=== PATIENT | male | born 1960 | race Caucasian/White ===

== ENCOUNTER 2019-06-10 12:31 | Emergency (ER) | payer OTHER ==
[~2019-06-10] VITALS: Ht 190.5 cm; Wt 102.1 kg
[2019-06-10 12:50] VITALS: BP 152/87
[2019-06-10] MEDS ORDERED: LIDOCAINE 1% HCL (LOCAL ANESTH.) INJ 20ML MDV ONE (14:04)
[2019-06-10] MEDS ORDERED: BACITRACIN TOP OINT 1 UD PKG TOP ONE (14:15)
[2019-06-10] MEDS ORDERED: LIDOCAINE 1% HCL (LOCAL ANESTH.) INJ 20ML MDV IJ ONE (14:15)
== END 2019-06-10 15:01 | disposition home or self-care (01) ==
LOC: ER 12:38
DX: S61.011A Laceration without foreign body of right thumb without damage to nail, initial encounter (principal); Z90.89 Acquired absence of other organs; W26.9XXA Contact with unspecified sharp object(s), initial encounter; Y93.89 Activity, other specified; Y99.8 Other external cause status; Y92.89 Other specified places as the place of occurrence of the external cause
CPT/HCPCS: 12001; 73140; 99283; J2001

== ENCOUNTER 2019-09-01 20:39 | Emergency (ER) | payer OTHER ==
[~2019-09-01] VITALS: Ht 190.5 cm; Wt 101.6 kg
[2019-09-02] MEDS ORDERED: ENOXAPARIN SOD 100 MG/1 ML SYRINGE SC ONE (00:30)
[2019-09-02 01:30] VITALS: BP 106/75
== END 2019-09-02 01:27 | disposition left against medical advice (07) ==
LOC: ER 20:39
DX: I82.401 Acute embolism and thrombosis of unspecified deep veins of right lower extremity (principal); Z53.29 Procedure and treatment not carried out because of patient's decision for other reasons; Z90.89 Acquired absence of other organs
CPT/HCPCS: 93971; 96372; 99284; J1650

== ENCOUNTER 2020-09-16 10:44 | Inpatient (IN) | payer OTHER ==
[~2020-09-16] VITALS: Ht 190.5 cm; Wt 98.4 kg
[2020-09-16 11:40] LABS: Basophils # (auto) 0 10 ^3/uL (0-0.2); Basophils % (auto) 0.6 % (0.0-2.0); Eosinophils # (auto) 0.2 10 ^3/uL (0-0.8); Eosinophils % (auto) 2.9 % (0.0-7.0); Hematocrit 46.7 % (41.0-53.0); Hemoglobin 15.9 g/dL (13.5-17.5); Lymphocytes # (auto) 1.9 10 ^3/uL (0.4-5.4); Lymphocytes % (auto) 30.9 % (10.0-50.0); Mean Corpuscular Volume 85.1 fL (80.0-100.0); Monocytes # (auto) 0.4 10 ^3/uL (0-1.3); Monocytes % (auto) 6.3 % (0.0-12.0); Neutrophils # (auto) 3.6 10 ^3/uL (1.6-8.6); Neutrophils % (auto) 59.3 % (37.0-80.0); Nucleated Red Blood Cells % 0.3 %; Platelet Count (auto) 276 10^3/uL (140-450); Red Blood Cells 5.48 10^6/uL (4.5-5.90); Red Cell Distribution Width 14.2 % (11.8-14.3)
[2020-09-16 11:42] LABS: INR 1.08 (0.9-1.15); Partial Thromboplastin Time 26.9 sec (23.0-31.2)
[2020-09-16 11:52] LABS: Albumin 3.9 g/dL (3.4-5.0); Calcium 8.9 mg/dL (8.5-10.1); Potassium 4.1 mmol/L (3.5-5.1)
[2020-09-16 11:55] LABS: BUN/Creatinine Ratio 10.8; Bilirubin, Total 0.2 mg/dL (0.2-1.0); Total Protein 8.1 g/dL (6.4-8.2)
[2020-09-16] MEDS ORDERED: LORazepam 0.5 MG TAB PO PRN (14:00)
[2020-09-16] MEDS ORDERED: NITROGLYCERIN 0.4 MG SL TAB SL PRN (14:00)
[2020-09-16] MEDS ORDERED: LABETALOL HCL 5 MG/ML 4ML SYRINGE IV PRN (14:00)
[2020-09-16] MEDS ORDERED: ACETAMINOPHEN 500 MG TAB PO PRN (14:00)
[2020-09-16] MEDS ORDERED: ONDANSETRON HCL 4 MG/2 ML VIAL IV PRN (14:00)
[2020-09-16] MEDS ORDERED: MORPHINE SULF INJ 2 MG/ML SYRINGE 1ML IV PRN (14:00)
[2020-09-16] MEDS ORDERED: DOCUSATE CALCIUM 240 MG CAP PO PRN (14:00)
[2020-09-16] MEDS ORDERED: MORPHINE SULFATE 4 MG/ML SYR/VIAL IV PRN (14:00)
[2020-09-16] MEDS: ENOXAPARIN SOD 100 MG/1 ML SYRINGE SC SCH ×2 (14:29→21:54)
[2020-09-16 15:29] VITALS: BP 107/75
[2020-09-16 16:59] VITALS: BP 107/75
[2020-09-16] MEDS ORDERED: APIX5TAB PO (19:44)
[2020-09-16] MEDS ORDERED: PHEN100C PO (19:44)
[2020-09-16 22:00] VITALS: BP 125/73
[2020-09-17 05:00] VITALS: BP 132/71
[2020-09-17 07:06] LABS: Basophils # (auto) 0 10 ^3/uL (0-0.2); Basophils % (auto) 1.2 % (0.0-2.0); Eosinophils # (auto) 0.2 10 ^3/uL (0-0.8); Hemoglobin 14.7 g/dL (13.5-17.5); Lymphocytes # (auto) 1.7 10 ^3/uL (0.4-5.4); Lymphocytes % (auto) 41.1 % (10.0-50.0); Mean Corpuscular Hemoglobin 28.9 pg (28.0-32.0); Mean Corpuscular Hgb Conc. 34.1 g/dL (32.0-36.0); Mean Corpuscular Volume 84.8 fL (80.0-100.0); Monocytes # (auto) 0.3 10 ^3/uL (0-1.3); Neutrophils # (auto) 1.9 10 ^3/uL (1.6-8.6); Neutrophils % (auto) 45.7 % (37.0-80.0); Nucleated Red Blood Cells % 0.4 %; Platelet Count (auto) 230 10^3/uL (140-450); Red Blood Cells 5.07 10^6/uL (4.5-5.90); Red Cell Distribution Width 14.3 % (11.8-14.3); White Blood Cell 4.1 10^3/uL (4.4-10.8)
[2020-09-17 07:20] LABS: INR 1.12 (0.9-1.15)
[2020-09-17 07:29] LABS: Potassium 4.5 mmol/L (3.5-5.1)
[2020-09-17 07:37] LABS: Albumin 3.4 g/dL (3.4-5.0); BUN/Creatinine Ratio 12.6; Bilirubin, Total 0.2 mg/dL (0.2-1.0); Calcium 8.7 mg/dL (8.5-10.1); Total Protein 6.9 g/dL (6.4-8.2)
[2020-09-17 09:00] VITALS: BP 133/82
[2020-09-17] MEDS ORDERED: PANTOPRAZOLE 40 MG TAB PO SCH (10:00)
[2020-09-17] MEDS ORDERED: PHENYTOIN SODIUM 100 MG CAP PO SCH (10:00)
[2020-09-17] MEDS ORDERED: APIX5TAB PO (10:17)
[2020-09-17] MEDS: ENOXAPARIN SOD 100 MG/1 ML SYRINGE SC SCH (10:35)
== END 2020-09-17 12:00 | disposition home or self-care (01) | DRG 301 ==
LOC: ER 10:44 → OVERFLOW 10:45 → CENTRAL 15:00
PROVIDERS: ADMIT Family Medicine; ATTEND Internal Medicine Pulmonary Disease
DX: I82.431 Acute embolism and thrombosis of right popliteal vein (principal); I82.411 Acute embolism and thrombosis of right femoral vein; G40.909 Epilepsy, unspecified, not intractable, without status epilepticus; Z20.822 Contact with and (suspected) exposure to COVID-19; R73.9 Hyperglycemia, unspecified; Z86.711 Personal history of pulmonary embolism; Z79.01 Long term (current) use of anticoagulants; Z86.718 Personal history of other venous thrombosis and embolism; Z90.49 Acquired absence of other specified parts of digestive tract
CPT/HCPCS: 36415; 71046; 73700; 80053; 80185; 83036; 84443; 85025; 85379; 85610; 85730; 87426; 93005; 93971; 96372; G0378